=== PATIENT | male | born 2005 | race Two or more races ===

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

== ENCOUNTER 2024-05-25 13:34 | Emergency (ER) | payer OTHER ==
[~2024-05-25] VITALS: Ht 162.6 cm; Wt 75.3 kg
[2024-05-25] MEDS ORDERED: 0.9 % SODIUM CHLORIDE 1,000 ML IV SCH ×2 (16:00)
[2024-05-25 16:26] LABS: HEMATOCRIT 45.7 % (39.0-48.0); HEMOGLOBIN 15.5 g/dL (13-16.00); MEAN CELL VOLUME 87.3 fL (80.0-100.00); MEAN CORPUSCULAR HEMOGLOBIN 29.5 pg (27.00-32.0); MEAN CORPUSCULAR HGB CONC 33.8 g/dl (32.0-36.0); PLATELET COUNT 202 K/uL (150-450); RED BLOOD COUNT 5.24 M/uL (4.00-6.00); RED CELL DISTRIBUTION WIDTH 13.1 % (11.5-14.5)
[2024-05-25] MEDS ORDERED: ACETAMINOPHEN 500 MG GEL..CAP PO ONE (16:49)
[2024-05-25 17:11] LABS: ALBUMIN 4.4 gm/dL (3.4-5.0); BILIRUBIN TOTAL 0.42 mg/dL (0.3-1.2); CALCIUM 9.1 mg/dL (8.5-10.1); CREATININE SERUM 0.91 mg/dL (0.70-1.30); GFR 106.22; GLOBULINA 3.6 G/DL (2.4-3.5); POTASSIUM 4.7 mEq/L (3.5-5.1)
[2024-05-25] MEDS ORDERED: KETOROLAC TROMETHAMINE 30 MG VIAL IV ONE (17:15)
[2024-05-25 17:40] LABS: INR 1.01; PARTIAL THROMBOPLASTIN TIME 29.3 SECONDS (22.0-34.0)
[2024-05-25] MEDS ORDERED: KETOROLAC TROMETHAMINE 30 MG VIAL ONE (17:41)
[2024-05-25 18:28] LABS: PH,URINE 5.5 (5.0-8.0); URINE APPEARANCE Clear; URINE BILIRRUBIN Negative (NEGATIVE); URINE BLOOD Negative; URINE COLOR Yellow; URINE GLUCOSE Negative (NEGATIVE); URINE KETONE Negative (NEGATIVE); URINE LEUKOCYTE Negative; URINE NITRATE Negative; URINE PROTEIN Trace (NEGATIVE)
[2024-05-25 18:32] LABS: URINE EPITHELIAL CELLS 3.3 uL (0.0-38.8); URINE RBC 15.1 uL (0.0-20.8); URINE WBC 3.1 uL (0.0-23.2)
[2024-05-25 18:33] LABS: URINE CAST 0.88 uL (0.0-1.40)
== END 2024-05-25 19:58 | disposition home or self-care (01) ==
LOC: EMR PED 13:37 → ER 13:37 → EMR PED 15:40
PROVIDERS: General Practice
DX: U07.1 COVID-19 (principal)